=== PATIENT | male | born 1950 | race Two or more races ===

== ENCOUNTER 2017-09-06 09:00 | Day surgery (SDC) | payer OTHER ==
[~2017-09-06] VITALS: Ht 182.9 cm; Wt 92.5 kg
[~2017-09-06 09:00] MED LIST: GABAPENTIN600 MG PO; TRAMADOL HCL50 MG PO
== END 2017-09-06 13:35 | disposition home or self-care (01) ==
LOC: CIR.AMB 09:00 → EDSTATUS 10:30 → SURH 10:30 → CIR.AMB 13:35
DX: M51.27 Other intervertebral disc displacement, lumbosacral region (principal); M51.26 Other intervertebral disc displacement, lumbar region

== ENCOUNTER 2017-11-28 11:28 | Outpatient (CLI) | payer OTHER | END 2017-11-28 11:41 | disposition home or self-care (01) | LOC: RAD 501 11:28 | DX: M54.5 Low back pain (principal); M54.6 Pain in thoracic spine ==